=== PATIENT | male | born 1960 | race American Indian/Alaskan Native ===

== ENCOUNTER 2016-09-11 21:17 | Emergency (ER) | payer OTHER, MEDICAID ==
--- NOTE | 2016-09-12 02:14 | Emergency Department Report ---
Upper Extremity - HPI Chief Complaint: Fall Stated Complaint: R HAND SWELLING/BACK PAIN Time Seen by Provider: 09/12/16 02:05 Upper Extremity: Right Wrist, Right Hand Occurred When: 2 Days Mechanism: Fall Symptoms: Yes Pain with Movement, Yes Limited Range of Movement, Yes Weakness, Yes Swelling, No Deformity, No Numbness, No Bruising/Ecchymosis, No Laceration or Abrasion Other History: Patient comes into the ER today with complaints of right hand and wrist pain for the past 2 days. Patient states that his knee gave out on him a couple days ago causing him to fall and injure his right hand. Patient has been trying to move his hand and work out the swelling but came in tonight because the swelling seems to be getting worse and the pain is not improving. Patient denies any loss of consciousness, neck pain, chest pain, shortness of breath, leg edema. Patient notes he does have a history of back pain but that they is chronic. She denies any numbness, tingling, loss of sensation. ED Review of Systems ROS: Stated complaint: R HAND SWELLING/BACK PAIN Other details as noted in HPI Constitutional: denies: chills, fever Eyes: denies: eye pain, eye discharge, vision change ENT: denies: ear pain, throat pain Respiratory: denies: cough, shortness of breath, wheezing Cardiovascular: denies: chest pain, palpitations Endocrine: no symptoms reported Gastrointestinal: denies: abdominal pain, nausea, diarrhea Genitourinary: denies: urgency, dysuria Musculoskeletal: back pain, joint swelling, arthralgia Skin: denies: rash, lesions Neurological: denies: headache, weakness, numbness, paresthesias Psychiatric: denies: anxiety, depression Hematological/Lymphatic: denies: easy bleeding, easy bruising ED Past Medical Hx - Past Medical History Previous Medical History?: Yes Hx Hypertension: Yes Hx CVA: Yes (3 in 2008) Hx Psychiatric Treatment: Yes Additional medical history: high cholesterol, - Surgical History Past Surgical History?: No - Social History Smoking Status: Never Smoker Substance Use Type: None - Medications Home Medications: Home Medications Medication Instructions Recorded Confirmed Last Taken Type Alprostadil [[place] SUPPOS] 1,000 mcg UR PRN 11/27/14 11/27/14 Unknown History Aspirin [Aspirin BABY CHEW TAB] 81 mg PO QDAY 11/27/14 11/27/14 Unknown History AtorvaSTATin [Lipitor] 80 mg PO DAILY 11/27/14 11/27/14 Unknown History Buspirone HCl [busPIRone] 5 mg PO BID 11/27/14 11/27/14 Unknown History Cholecalciferol (Vitamin D3) 1,000 unit PO QDAY 11/27/14 11/27/14 Unknown History [Vitamin D3] Clopidogrel [Plavix] 75 mg PO QDAY 11/27/14 11/27/14 Unknown History Lisinopril/Hydrochlorothiazide 2 tab PO QDAY 11/27/14 11/27/14 Unknown History [Zestoretic 20-12.5 mg] Potassium Chloride [K-Dur] 20 meq PO QDAY 11/27/14 11/27/14 Unknown History QUEtiapine [SEROquel] 100 mg PO QHS 11/27/14 11/27/14 Unknown History Sertraline [Zoloft] 200 mg PO QDAY 11/27/14 11/27/14 Unknown History Tadalafil [Cialis] 20 mg PO QDAY PRN 11/27/14 11/27/14 Unknown History amLODIPine [Norvasc] 10 mg PO DAILY 11/27/14 11/27/14 Unknown History traZODone [Desyrel] 100 mg PO QHS 11/27/14 11/27/14 Unknown History Ibuprofen [Motrin 800 MG tab] 800 mg PO Q8HR PRN #40 tablet 07/09/15 Unknown Rx traMADol [Ultram] 50 mg PO Q6HR PRN #20 tablet 07/09/15 Unknown Rx Naproxen [Naprosyn TAB] 500 mg PO BID #14 tablet 09/12/16 Unknown Rx traMADol [Ultram 50 MG tab] 50 mg PO Q4HR PRN #20 tablet 09/12/16 Unknown Rx Upper Extremity Exam - Exam General: Vital signs noted. No distress. Alert and acting appropriately. Head and Torso: No HEENT Abnormality, No Neck Tenderness, No Chest/Lungs Abnormality, No Abdominal Tenderness, No Back Tenderness Shoulder Exam: Yes Normal Range of Motion in Shoulder, No Shoulder Tenderness, No Clavicle Tenderness, No Shoulder Deformity, No AC Joint Tenderness Arm Exam: No Arm/Humerus Tenderness, No Arm Deformity Elbow: No Elbow Tenderness, No Normal Range of Motion in Elbow, No Elbow Deformity Forearm: No Forearm Tenderness, No Forearm Deformity, No Pain with Pronation, No Pain with Supination Wrist: Yes Wrist Tenderness (right distal radius tenderness), Yes Snuffbox Tenderness (right), No Normal ROM in Wrist (right), No Wrist Deformity, No Pain with Axial Thumb Compression Hand: Yes Hand Tenderness (greatest tenderness noted over the third metacarpal bone), Yes Normal ROM in Digit(s), No Hand Deformity, No Digit Tenderness, No Digit(s) Deformity, No Tendon Dysfunction CMS Exam: Yes Normal Distal Pulses, Yes Normal Capillary Refill, Yes Normal Distal Sensation, No Broken Skin ED Course Vital Signs 09/11/16 21:30 Temperature 98.1 F Pulse Rate 73 Respiratory 20 Rate Blood Pressure 126/93 O2 Sat by Pulse 100 Oximetry ED Medical Decision Making - Radiology Data Radiology results: image reviewed interpreted by me: X-ray right hand, x-ray right wrist: Nondisplaced mid shaft fracture to right third metacarpal bone. Possible distal radius nondisplaced fracture of right wrist. - Medical Decision Making Patient is nontoxic and hemodynamically stable. Patient placed in a volar thumb spica splint here in the ER. Patient is neurovascularly intact after splint placement. Have instructed patient to leave splint on until seen by orthopedic next week. I will start patient on some medication for symptomatic relief. Patient is in agreement with treatment plan and patient is stable for discharge. Critical care attestation.: If time is entered above; I have spent that time in minutes in the direct care of this critically ill patient, excluding procedure time. ED Disposition Clinical Impression: Closed right hand fracture, Closed fracture of right distal radius Disposition: TO HOME OR SELFCARE Is pt being admited?: No Does the pt Need Aspirin: No Condition: Good Instructions: Hand Fracture (ED), Wrist Fracture in Adults (ED) Prescriptions: Naproxen [Naprosyn TAB] 500 mg PO BID #14 tablet traMADol [Ultram 50 MG tab] 50 mg PO Q4HR PRN #20 tablet PRN Reason: Pain Referrals: PRIMARY CARE, [Primary Care Provider] - 3-5 Days YIFAN NIÑO MD [Staff Physician] - 3-5 Days Time of Disposition: 02:23
[2016-09-12 03:30] VITALS: BP 159/96
--- NOTE | 2016-09-12 11:03 | XRay Report ---
X-RAY RIGHT HAND THREE VIEWS: 09/11/16 21:34:00 CLINICAL: Right pain. 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 No acute fracture or dislocation. There is radiocarpal joint space narrowing and an abnormally small scaphoid. The position of the lunate is also abnormal. An avulsed bone fragment is identified at the lateral aspect of the distal radius but this is not appear to be an acute avulsion. IMPRESSION: Suspect a remote scaphoid fracture with resultant osteoarthritis of the radiocarpal joint and dislocation of the lunate. Further imaging with CT or MRI would be more definitive. Arthritis of the thumb.
--- NOTE | 2016-09-12 11:05 | XRay Report ---
RIGHT WRIST FOUR VIEWS: 09/11/16 21:34:00 CLINICAL: Pain. FINDINGS: There is radiocarpal joint space narrowing and an abnormally small scaphoid. The lunate appears rotated. An avulsed bone fragment is identified at the lateral aspect of the distal radius. This appears to be an old avulsion fracture possibly of the radial styloid. The articular surface of the distal radius is irregular this probably an old injury. No acute fracture or dislocation. IMPRESSION: Suspect remote trauma with a remote scaphoid fracture with resultant osteoarthritis of the radiocarpal joint and dislocation of the lunate. Remote fracture of the distal radius is also possible. Further imaging with CT or MRI would be more definitive.
== END 2016-09-12 03:30 | disposition home or self-care (01) ==
LOC: ED 21:17
DX: S52.501A Unspecified fracture of the lower end of right radius, initial encounter for closed fracture (principal); X58.XXXA Exposure to other specified factors, initial encounter; Y93.9 Activity, unspecified; Y92.9 Unspecified place or not applicable; Y99.9 Unspecified external cause status; I10 Essential (primary) hypertension; E78.00 Pure hypercholesterolemia, unspecified
CPT/HCPCS: 99283

== ENCOUNTER 2016-11-15 23:12 | Emergency (ER) | payer MEDICAID, OTHER ==
--- NOTE | 2016-11-16 00:42 | Emergency Department Report ---
ED Back Pain/Injury HPI - General Chief Complaint: Back Pain/Injury Stated Complaint: HICCUPS,BACK,KNEE PAIN Time Seen by Provider: 11/16/16 00:34 Source: patient Limitations: No Limitations - History of Present Illness Initial Comments: This 56-year-old male nontoxic, well nourished in appearance, no acute signs of distress presents to the ED complaining of chronic back pain and bilateral shoulder pain 3 years. Patient also is complaining of hiccups intermittently 6 days. Patient that he has a pain management for his back and shoulder pain and gets prescriptions for Percocets which patient that he ran out and wanted to get a refill. Patient did state he has a pain management doctor follow-up in 2 days. Patient denies any trauma to the back or shoulders. Patient denies any dysuria or polyuria or hematuria. They stated this is a chronic issue that is resolved by taking Percocet. Patient did state that his hiccups do occur after the patient eats a heavy meal and worse during laying down. Patient denies being diagnosed with GERD. Patient also stated that her headache of episodes he has a burning sensation in the midsternal region that goes to his neck and feels like he has to vomit. Patient states all the symptoms occur at the heavy meal and when going to sleep. Patient denies any chest pain, shortness of breath, numbness, tingling, fever, chills, headache, stiff neck, bowel pain, nausea or vomiting. Patient denies any allergies. Past medical history includes CVA, hypertension. Patient did state he does have a primary care doctor that he sees for his hypertension and does take medication for his blood pressure. MD Complaint: back pain -: Gradual, year(s) Similar Symptoms Previously: Yes Radiation: none Severity: mild Severity scale (0 -10): 5 Quality: aching Consistency: intermittent Improves With: medication (Perococet) Worsens With: none Associated Symptoms: denies other symptoms. denies: confusion, weakness, chest pain, numbness, difficulty walking, cough, difficulty urinating, diaphoresis, incontinence, fever/chills, constipation, headaches, abdominal pain, loss of appetite, malaise, nausea/vomiting, rash, seizure, shortness of breath, syncope - Related Data Home Medications Medication Instructions Recorded Confirmed Last Taken Alprostadil [[place] SUPPOS] 1,000 mcg UR PRN 11/27/14 11/27/14 Unknown Aspirin [Aspirin BABY CHEW TAB] 81 mg PO QDAY 11/27/14 11/27/14 Unknown AtorvaSTATin [Lipitor] 80 mg PO DAILY 11/27/14 11/27/14 Unknown Buspirone HCl [busPIRone] 5 mg PO BID 11/27/14 11/27/14 Unknown Cholecalciferol (Vitamin D3) 1,000 unit PO QDAY 11/27/14 11/27/14 Unknown [Vitamin D3] Clopidogrel [Plavix] 75 mg PO QDAY 11/27/14 11/27/14 Unknown Lisinopril/Hydrochlorothiazide 2 tab PO QDAY 11/27/14 11/27/14 Unknown [Zestoretic 20-12.5 mg] Potassium Chloride [K-Dur] 20 meq PO QDAY 11/27/14 11/27/14 Unknown QUEtiapine [SEROquel] 100 mg PO QHS 11/27/14 11/27/14 Unknown Sertraline [Zoloft] 200 mg PO QDAY 11/27/14 11/27/14 Unknown Tadalafil [Cialis] 20 mg PO QDAY PRN 11/27/14 11/27/14 Unknown amLODIPine [Norvasc] 10 mg PO DAILY 11/27/14 11/27/14 Unknown traZODone [Desyrel] 100 mg PO QHS 11/27/14 11/27/14 Unknown Previous Rx's Medication Instructions Recorded Last Taken Type Ibuprofen [Motrin 800 MG tab] 800 mg PO Q8HR PRN #40 tablet 07/09/15 Unknown Rx traMADol [Ultram] 50 mg PO Q6HR PRN #20 tablet 07/09/15 Unknown Rx Naproxen [Naprosyn TAB] 500 mg PO BID #14 tablet 09/12/16 Unknown Rx traMADol [Ultram 50 MG tab] 50 mg PO Q4HR PRN #20 tablet 09/12/16 Unknown Rx Ibuprofen [Motrin 600 MG tab] 600 mg PO Q8H PRN #30 tablet 11/16/16 Unknown Rx Ranitidine HCl [Zantac 150 MG TAB] 150 mg PO BID #30 tablet 11/16/16 Unknown Rx Allergies Allergy/AdvReac Type Severity Reaction Status Date / Time No Known Allergies Allergy Unverified 07/09/15 17:47 ED Review of Systems ROS: Stated complaint: HICCUPS,BACK,KNEE PAIN Other details as noted in HPI Constitutional: denies: chills, fever Eyes: denies: eye pain, eye discharge, vision change ENT: denies: ear pain, throat pain Respiratory: denies: cough, shortness of breath, wheezing Cardiovascular: denies: chest pain, palpitations Endocrine: no symptoms reported Gastrointestinal: denies: abdominal pain, nausea, diarrhea Genitourinary: denies: urgency, dysuria Musculoskeletal: denies: back pain, joint swelling, arthralgia Skin: denies: rash, lesions Neurological: denies: headache, weakness, paresthesias Psychiatric: denies: anxiety, depression Hematological/Lymphatic: denies: easy bleeding, easy bruising ED Past Medical Hx - Past Medical History Previous Medical History?: Yes Hx Hypertension: Yes Hx CVA: Yes (3 in 2008) Hx Psychiatric Treatment: Yes Additional medical history: high cholesterol, - Surgical History Past Surgical History?: No - Social History Smoking Status: Never Smoker Substance Use Type: None - Medications Home Medications: Home Medications Medication Instructions Recorded Confirmed Last Taken Type Alprostadil [[place] SUPPOS] 1,000 mcg UR PRN 11/27/14 11/27/14 Unknown History Aspirin [Aspirin BABY CHEW TAB] 81 mg PO QDAY 11/27/14 11/27/14 Unknown History AtorvaSTATin [Lipitor] 80 mg PO DAILY 11/27/14 11/27/14 Unknown History Buspirone HCl [busPIRone] 5 mg PO BID 11/27/14 11/27/14 Unknown History Cholecalciferol (Vitamin D3) 1,000 unit PO QDAY 11/27/14 11/27/14 Unknown History [Vitamin D3] Clopidogrel [Plavix] 75 mg PO QDAY 11/27/14 11/27/14 Unknown History Lisinopril/Hydrochlorothiazide 2 tab PO QDAY 11/27/14 11/27/14 Unknown History [Zestoretic 20-12.5 mg] Potassium Chloride [K-Dur] 20 meq PO QDAY 11/27/14 11/27/14 Unknown History QUEtiapine [SEROquel] 100 mg PO QHS 11/27/14 11/27/14 Unknown History Sertraline [Zoloft] 200 mg PO QDAY 11/27/14 11/27/14 Unknown History Tadalafil [Cialis] 20 mg PO QDAY PRN 11/27/14 11/27/14 Unknown History amLODIPine [Norvasc] 10 mg PO DAILY 11/27/14 11/27/14 Unknown History traZODone [Desyrel] 100 mg PO QHS 11/27/14 11/27/14 Unknown History Ibuprofen [Motrin 800 MG tab] 800 mg PO Q8HR PRN #40 tablet 07/09/15 Unknown Rx traMADol [Ultram] 50 mg PO Q6HR PRN #20 tablet 07/09/15 Unknown Rx Naproxen [Naprosyn TAB] 500 mg PO BID #14 tablet 09/12/16 Unknown Rx traMADol [Ultram 50 MG tab] 50 mg PO Q4HR PRN #20 tablet 09/12/16 Unknown Rx Ibuprofen [Motrin 600 MG tab] 600 mg PO Q8H PRN #30 tablet 11/16/16 Unknown Rx Ranitidine HCl [Zantac 150 MG TAB] 150 mg PO BID #30 tablet 11/16/16 Unknown Rx ED Physical Exam - General Limitations: No Limitations General appearance: alert, in no apparent distress - Head Head exam: Present: atraumatic, normocephalic, normal inspection - Eye Eye exam: Present: normal appearance, PERRL, EOMI. Absent: scleral icterus, conjunctival injection, nystagmus, periorbital swelling, periorbital tenderness Pupils: Present: normal accommodation - ENT ENT exam: Present: normal exam, normal orophraynx, mucous membranes moist, TM's normal bilaterally, normal external ear exam - Neck Neck exam: Present: normal inspection, full ROM. Absent: tenderness, meningismus, lymphadenopathy, thyromegaly - Respiratory Respiratory exam: Present: normal lung sounds bilaterally. Absent: respiratory distress, wheezes, rales, rhonchi, stridor, chest wall tenderness, accessory muscle use, decreased breath sounds, prolonged expiratory - Cardiovascular Cardiovascular Exam: Present: regular rate, normal rhythm, normal heart sounds. Absent: bradycardia, tachycardia, irregular rhythm, systolic murmur, diastolic murmur, rubs, gallop - GI/Abdominal GI/Abdominal exam: Present: soft, normal bowel sounds. Absent: distended, tenderness, guarding, rebound, rigid, diminished bowel sounds - Rectal Rectal exam: Present: deferred - Extremities Exam Extremities exam: Present: normal inspection, full ROM, normal capillary refill. Absent: tenderness, pedal edema, joint swelling, calf tenderness - Back Exam Back exam: Present: normal inspection, full ROM. Absent: tenderness, CVA tenderness (R), CVA tenderness (L), muscle spasm, paraspinal tenderness, vertebral tenderness, rash noted - Expanded Back Exam Expanded Back exam: Present: normal rectal tone. Absent: saddle anesthesia Back exam: Negative Straight Leg Raising: Left, Right - Neurological Exam Neurological exam: Present: alert, oriented X3, CN II-XII intact, normal gait, reflexes normal - Expanded Neurological Exam Expanded Patient oriented to: Present: person, place, time Speech: Present: fluid speech Cranial nerves: EOM's Intact: Normal, Gag Reflex: Normal, Tongue Deviation: Normal, Nystagmus: Normal, Facial Sensation: Normal, Facial Palsy with Forehead Movement: Normal, Facial Palsy without Forehead Movement: Normal Cerebellar function: Finger to Nose: Normal, Heel to Craft: Normal, Romberg: Normal Upper motor neuron: Pierce Neglect: Normal, Pronator Drift: Normal, Babinski Sign : Normal, Sensory Extinction: Normal Sensory exam: Upper Extremity Light Touch: Normal, Upper Extremity Pin Prick: Normal, Upper Extremity Temperature: Normal, UE 2 Point Discrimination: Normal, Lower Extremity Light Touch: Normal, Lower Extremity Pin Prick: Normal, Lower Extremity Temperature: Normal, LE 2 Point Discrimination: Normal Motor strength exam: RUE: 5, LUE: 5, RLE: 5, LLE: 5 DTR: bicep (R): 2+, bicep (L): 2+, tricep (R): 2+, tricep (L): 2+, knee (R): 2+ , knee (L): 2+, ankle (R): 2+, ankle (L): 2+ Best Eye Response (Radha): (4) open spontaneously Best Motor Response (Radha): (6) obeys commands Best Verbal Response (Acosta): (5) oriented Radha Total: 15 - Psychiatric Psychiatric exam: Present: normal affect, normal mood - Skin Skin exam: Present: warm, dry, intact, normal color. Absent: rash ED Course Vital Signs 11/16/16 00:03 Temperature 98.1 F Pulse Rate 69 Respiratory 18 Rate Blood Pressure 161/109 O2 Sat by Pulse 99 Oximetry - Reevaluation(s) Reevaluation #1: 11/16/16 00:48 Patient is speaking in full sentences with no signs of distress noted. ED Medical Decision Making - Medical Decision Making This is a 56-year-old male that is requesting for Percocet refill. [facility] has been ran and indicates patient filled under 80 pills of 10 mg Percocet on . Notify the patient about this and my concerns of patient receiving more narcotics and side effects. Patient agrees to receiving ibuprofen with follow-up with pain management. Patient also received Zantac 150 mg twice a day. At time time of discharge, the patient does not seem toxic or ill in appearance. No acute signs of distress noted. Patient agrees to discharge treatment plan of care. No further questions noted by the patient. Critical care attestation.: If time is entered above; I have spent that time in minutes in the direct care of this critically ill patient, excluding procedure time. ED Disposition Clinical Impression: GERD (gastroesophageal reflux disease) Qualifiers: Esophagitis presence: esophagitis presence not specified Qualified Code(s): K21.9 - Gastro-esophageal reflux disease without esophagitis Back pain, chronic Qualifiers: Back pain location: low back pain Back pain laterality: unspecified Sciatica presence: unspecified whether sciatica present Qualified Code(s): M54.5 - Low back pain; G89.29 - Other chronic pain Disposition: DC-01 TO HOME OR SELFCARE Is pt being admited?: No Does the pt Need Aspirin: No Condition: Stable Instructions: Gastroesophageal Reflux in Children (ED), Ranitidine (By mouth), Ibuprofen (By mouth) Additional Instructions: Follow-up with a primary care doctor in 3-5 days or if symptoms worsen and continue return to emergency room as soon as possible possible. Prescriptions: Ibuprofen [Motrin 600 MG tab] 600 mg PO Q8H PRN #30 tablet PRN Reason: Pain Ranitidine HCl [Zantac 150 MG TAB] 150 mg PO BID #30 tablet Referrals: PRIMARY MD CINDY [Primary Care Provider] - 3-5 Days FANNIE SEGURA MD [Staff Physician] - 3-5 Days [facility] [Outside] - 3-5 Days [facility] [Outside] - 3-5 Days
[2016-11-16] MEDS ORDERED: MOTRIN PO ONE (00:47)
[2016-11-16 01:11] VITALS: BP 130/83
== END 2016-11-16 02:50 | disposition home or self-care (01) ==
LOC: ED 23:12
DX: K21.9 Gastro-esophageal reflux disease without esophagitis (principal); M54.5 Low back pain; M25.511 Pain in right shoulder; M25.512 Pain in left shoulder; I10 Essential (primary) hypertension; E78.00 Pure hypercholesterolemia, unspecified; Z86.73 Personal history of transient ischemic attack (TIA), and cerebral infarction without residual deficits; Z79.82 Long term (current) use of aspirin
CPT/HCPCS: 99282

== ENCOUNTER 2017-01-17 22:15 | Emergency (ER) | payer MEDICAID ==
--- NOTE | 2017-01-18 03:35 | Emergency Department Report ---
ED General Adult HPI - General Chief complaint: Pain General Stated complaint: THROAT SPASMS Time Seen by Provider: 01/18/17 03:28 Source: patient Mode of arrival: Ambulatory Limitations: No Limitations - History of Present Illness Initial comments: 56 YO MALE WITH H/O HICCUPS MOST OF HIS LIFE . THESE ARE INTERMITTENT TYPICALLY LASTING FOR 4 DAYS AND THEN GO AWAY ON IT OWN. HE HAD AN RECENT EPISODE BEGINNING ON 01/07/2017 AND WAS STILL LASTING UNTIL TODAY. 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 NO DISTRESS. PT'S HICCUPS WERE GONE WHEN I INTERVIEWED HIM. MD Complaint: HICCUPS -: days(s) (11) Severity scale (0 -10): 0 Improves with: none Worsens with: none Treatments Prior to Arrival: none - Related Data Home Medications Medication Instructions Recorded Confirmed Last Taken Alprostadil [[place] SUPPOS] 1,000 mcg UR PRN 11/27/14 11/27/14 Unknown Aspirin [Aspirin BABY CHEW TAB] 81 mg PO QDAY 11/27/14 11/27/14 Unknown AtorvaSTATin [Lipitor] 80 mg PO DAILY 11/27/14 11/27/14 Unknown Buspirone HCl [busPIRone] 5 mg PO BID 11/27/14 11/27/14 Unknown Cholecalciferol (Vitamin D3) 1,000 unit PO QDAY 11/27/14 11/27/14 Unknown [Vitamin D3] Clopidogrel [Plavix] 75 mg PO QDAY 11/27/14 11/27/14 Unknown Lisinopril/Hydrochlorothiazide 2 tab PO QDAY 11/27/14 11/27/14 Unknown [Zestoretic 20-12.5 mg] Potassium Chloride [K-Dur] 20 meq PO QDAY 11/27/14 11/27/14 Unknown QUEtiapine [SEROquel] 100 mg PO QHS 11/27/14 11/27/14 Unknown Sertraline [Zoloft] 200 mg PO QDAY 11/27/14 11/27/14 Unknown Tadalafil [Cialis] 20 mg PO QDAY PRN 11/27/14 11/27/14 Unknown amLODIPine [Norvasc] 10 mg PO DAILY 11/27/14 11/27/14 Unknown traZODone [Desyrel] 100 mg PO QHS 11/27/14 11/27/14 Unknown Previous Rx's Medication Instructions Recorded Last Taken Type Ibuprofen [Motrin 800 MG tab] 800 mg PO Q8HR PRN #40 tablet 07/09/15 Unknown Rx traMADol [Ultram] 50 mg PO Q6HR PRN #20 tablet 07/09/15 Unknown Rx Naproxen [Naprosyn TAB] 500 mg PO BID #14 tablet 09/12/16 Unknown Rx traMADol [Ultram 50 MG tab] 50 mg PO Q4HR PRN #20 tablet 09/12/16 Unknown Rx Ibuprofen [Motrin 600 MG tab] 600 mg PO Q8H PRN #30 tablet 11/16/16 Unknown Rx Ranitidine HCl [Zantac 150 MG TAB] 150 mg PO BID #30 tablet 01/18/17 Unknown Rx Allergies Allergy/AdvReac Type Severity Reaction Status Date / Time No Known Allergies Allergy Unverified 07/09/15 17:47 ED Review of Systems ROS: Stated complaint: THROAT SPASMS Other details as noted in HPI Constitutional: denies: chills, fever Eyes: denies: eye pain, eye discharge, vision change ENT: denies: ear pain, throat pain Respiratory: denies: cough, shortness of breath, wheezing Cardiovascular: denies: chest pain, palpitations Endocrine: no symptoms reported Gastrointestinal: other (ABDOMINAL SURGERY). denies: nausea, diarrhea Genitourinary: denies: urgency, dysuria Musculoskeletal: denies: back pain, joint swelling, arthralgia Skin: denies: rash, lesions Neurological: denies: headache, weakness, paresthesias Psychiatric: denies: anxiety, depression Hematological/Lymphatic: denies: easy bleeding, easy bruising ED Past Medical Hx - Past Medical History Previous Medical History?: Yes Hx Hypertension: Yes Hx CVA: Yes (3 in 2008) Hx Psychiatric Treatment: Yes Additional medical history: high cholesterol, - Surgical History Past Surgical History?: Yes Additional Surgical History: REGI surgery last - Social History Smoking Status: Never Smoker - Medications Home Medications: Home Medications Medication Instructions Recorded Confirmed Last Taken Type Alprostadil [[place] SUPPOS] 1,000 mcg UR PRN 11/27/14 11/27/14 Unknown History Aspirin [Aspirin BABY CHEW TAB] 81 mg PO QDAY 11/27/14 11/27/14 Unknown History AtorvaSTATin [Lipitor] 80 mg PO DAILY 11/27/14 11/27/14 Unknown History Buspirone HCl [busPIRone] 5 mg PO BID 11/27/14 11/27/14 Unknown History Cholecalciferol (Vitamin D3) 1,000 unit PO QDAY 11/27/14 11/27/14 Unknown History [Vitamin D3] Clopidogrel [Plavix] 75 mg PO QDAY 11/27/14 11/27/14 Unknown History Lisinopril/Hydrochlorothiazide 2 tab PO QDAY 11/27/14 11/27/14 Unknown History [Zestoretic 20-12.5 mg] Potassium Chloride [K-Dur] 20 meq PO QDAY 11/27/14 11/27/14 Unknown History QUEtiapine [SEROquel] 100 mg PO QHS 11/27/14 11/27/14 Unknown History Sertraline [Zoloft] 200 mg PO QDAY 11/27/14 11/27/14 Unknown History Tadalafil [Cialis] 20 mg PO QDAY PRN 11/27/14 11/27/14 Unknown History amLODIPine [Norvasc] 10 mg PO DAILY 11/27/14 11/27/14 Unknown History traZODone [Desyrel] 100 mg PO QHS 11/27/14 11/27/14 Unknown History Ibuprofen [Motrin 800 MG tab] 800 mg PO Q8HR PRN #40 tablet 07/09/15 Unknown Rx traMADol [Ultram] 50 mg PO Q6HR PRN #20 tablet 07/09/15 Unknown Rx Naproxen [Naprosyn TAB] 500 mg PO BID #14 tablet 09/12/16 Unknown Rx traMADol [Ultram 50 MG tab] 50 mg PO Q4HR PRN #20 tablet 09/12/16 Unknown Rx Ibuprofen [Motrin 600 MG tab] 600 mg PO Q8H PRN #30 tablet 11/16/16 Unknown Rx Ranitidine HCl [Zantac 150 MG TAB] 150 mg PO BID #30 tablet 01/18/17 Unknown Rx ED Physical Exam - General Limitations: No Limitations General appearance: alert, in no apparent distress - Head Head exam: Present: atraumatic, normocephalic - Eye Eye exam: Present: normal appearance, EOMI - ENT ENT exam: Present: mucous membranes moist - Neck Neck exam: Present: normal inspection, full ROM - Respiratory Respiratory exam: Present: normal lung sounds bilaterally. Absent: respiratory distress, wheezes, rales, rhonchi - Cardiovascular Cardiovascular Exam: Present: regular rate, normal rhythm. Absent: systolic murmur, diastolic murmur, rubs, gallop - GI/Abdominal GI/Abdominal exam: Present: soft, tenderness (SMALL SCAR AROUND THE UMBILICUS), normal bowel sounds - Rectal Rectal exam: Present: deferred - Extremities Exam Extremities exam: Present: normal inspection - Back Exam Back exam: Present: normal inspection - Neurological Exam Neurological exam: Present: alert, oriented X3 - Psychiatric Psychiatric exam: Present: normal affect, normal mood - Skin Skin exam: Present: warm, dry, intact, normal color. Absent: rash ED Course Vital Signs 01/17/17 01/17/17 01/18/17 22:21 22:31 02:40 Temperature 98.1 F 98.1 F Pulse Rate 72 79 Respiratory 18 18 Rate Blood Pressure 176/109 176/106 Blood Pressure [Right] O2 Sat by Pulse 98 98 95 Oximetry 01/18/17 01/18/17 02:45 02:49 Temperature 98.4 F Pulse Rate 72 79 Respiratory 14 13 Rate Blood Pressure 167/104 Blood Pressure 177/100 [Right] O2 Sat by Pulse 93 99 Oximetry ED Medical Decision Making - Medical Decision Making PT HAD NO HICCUPS THUS NOTHING TO TREAT. HE USUALLY GET RANATIDINE FOR HIS HICCUPS THUS I HAVE SENT HIM OUT WITH THIS. Critical care attestation.: If time is entered above; I have spent that time in minutes in the direct care of this critically ill patient, excluding procedure time. ED Disposition Clinical Impression: Hiccups Disposition: DC-01 TO HOME OR SELFCARE Is pt being admited?: No Does the pt Need Aspirin: No Condition: Stable Instructions: Hiccups (ED) Prescriptions: Ranitidine HCl [Zantac 150 MG TAB] 150 mg PO BID #30 tablet Referrals: PRIMARY CARE, [Primary Care Provider] - 3-5 Days
[2017-01-18 04:04] VITALS: BP 170/104
== END 2017-01-18 04:27 | disposition home or self-care (01) ==
LOC: ED 22:15
DX: R06.6 Hiccough (principal); I10 Essential (primary) hypertension; I63.9 Cerebral infarction, unspecified; E78.5 Hyperlipidemia, unspecified; Z79.82 Long term (current) use of aspirin
CPT/HCPCS: 99282

== ENCOUNTER 2017-08-16 05:08 | Emergency (ER) | payer OTHER, MEDICAID ==
[2017-08-16 05:16] VITALS: BP 126/82
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
== END 2017-08-16 09:58 | disposition home or self-care (01) ==
LOC: ED 05:08
DX: S46.911A Strain of unspecified muscle, fascia and tendon at shoulder and upper arm level, right arm, initial encounter (principal); I10 Essential (primary) hypertension; E78.00 Pure hypercholesterolemia, unspecified; Z90.49 Acquired absence of other specified parts of digestive tract; Z79.82 Long term (current) use of aspirin; V89.2XXA Person injured in unspecified motor-vehicle accident, traffic, initial encounter; Y93.89 Activity, other specified; Y92.89 Other specified places as the place of occurrence of the external cause; Y99.8 Other external cause status
CPT/HCPCS: 99283

== ENCOUNTER 2018-10-05 10:13 | Observation (INO) | payer MEDICAID ==
[2018-10-05] MEDS ORDERED: KEPPRA 1,000 MG/NS 0.75% 100ML 1,000 MG/100 ML BAG IV ONE (10:25)
[2018-10-05 10:40] LABS: Basophils % (Auto) 0.8 % (0.0-1.8); Eosinophils # (Auto) 0.1 K/mm3 (0.0-0.4); Eosinophils % (Auto) 1.7 % (0.0-4.3); Hematocrit 34.5 % (35.5-45.6); Hemoglobin 11.3 gm/dl (11.8-15.2); Lymphocytes # (Auto) 1.3 K/mm3 (1.2-5.4); Lymphocytes % (Auto) 29.5 % (13.4-35.0); Mean Corpuscular HGB Conc 33 % (32-34); Mean Corpuscular Volume 81 fl (84-94); Monocytes # (Auto) 0.5 K/mm3 (0.0-0.8); Monocytes % (Auto) 10.4 % (0.0-7.3); Platelet Count 183 K/mm3 (140-440); Red Blood Count 4.24 M/mm3 (3.65-5.03); Red Cell Distribution Width 14.1 % (13.2-15.2)
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
--- NOTE | 2018-10-05 10:56 | Cat Scan Report ---
CT HEAD WITHOUT CONTRAST INDICATION / CLINICAL INFORMATION: Stroke, code stroke.. Seizure TECHNIQUE: Axial imaging performed from the skull apex through the skull base without the use of cont rast. Sagittal and coronal reformatted images. All CT scans at this location are performed using CT dose reduction for ALARA by means of automated exposure control. COMPARISON: CT head report dated 05/03/2017 FINDINGS: CEREBRAL PARENCHYMA: Mild cortical volume loss and moderate chronic ischemic changes in the white mat ter are identified. Multiple chronic infarcts are identified. A cortical infarct in the left frontal lobe measures up to 5.8 x 3.5 cm. Focal infarct in the right anterior basal ganglia measures 2.7 x 1 .4 cm. 1 cm chronic lacunar infarct is noted in the anterior left thalamus. Chronic 1 cm focal infarc ts in the posterior cerebellar hemispheres bilaterally is also noted. No evidence for mass or large a danielle of acute ischemia on noncontrast CT. HEMORRHAGE: None. EXTRA-AXIAL SPACES: Normal in size and morphology for the patient's age. VENTRICULAR SYSTEM: Normal in size and morphology for the patient's age. MIDLINE SHIFT OR HERNIATION: None. CEREBELLUM / BRAINSTEM: Focal chronic infarcts as noted above. CALVARIUM: No significant abnormality. ORBITS: Normal as visualized. PARANASAL SINUSES / MASTOID AIR CELLS: Normal as visualized. SOFT TISSUES of HEAD: No significant abnormality. ADDITIONAL FINDINGS: None. IMPRESSION: Volume loss and chronic white matter changes. Multiple chronic infarcts as outlined above. No evidenc e for acute ischemia, mass or hemorrhage. These findings were discussed with Dr. Moctezuma in [facility] Signer Name: Ronal Olivarez Jr, MD Signed: 10/05/2018 10:52 AM Workstation Name: [id number]
[2018-10-05 11:01] LABS: Creatine Kinase MB 1.3 ng/mL (0.0-4.0)
[2018-10-05 11:02] LABS: Alanine Aminotransferase 10 units/L (7-56)
[2018-10-05 11:03] LABS: BUN/Creatinine Ratio 11; Bilirubin,Direct < 0.2 mg/dL (0-0.2); Blood Urea Nitrogen 12 mg/dL (9-20); Hemolysis Index 9
[2018-10-05] MEDS ORDERED: K-DUR PO ONE (11:12)
--- NOTE | 2018-10-05 11:12 | Emergency Department Report ---
ED Neuro Deficit HPI - General Chief Complaint: Altered Mental Status Stated Complaint: POSS STROKE Time Seen by Provider: 10/05/18 10:17 Source: patient, EMS Mode of arrival: Stretcher Limitations: No Limitations - History of Present Illness Initial Comments: This is a 58-year-old man that arrives as a "code stroke". Medics tell me that he was found lethargic with froth at the side of his mouth. They checked his sugar and vital signs which were within reasonable limits. While being transported to the hospital the patient essentially awoke. At the time of his arrival he was able to tell me his age and the month. He also told me that he felt like he was back to normal. He stated that he had 3 or 4 prior strokes which left him with left-sided weakness and facial paresis. This was apparent on initial exam. Code stroke continued. I reported the history to tell her neurologist who concurred that a postictal state was probably what occurred. Therefore and being that the patient had no acute neurological deficits he was ineligible for treatment with TPA and it was deemed not to be appropriate. Patient stated that he had no history of seizures in the past. Obviously he was substantial risk with multiple prior strokes. He was treated empirically with Keppra. -: unknown History of same: No Place: home Severity: moderate Quality: other (altered mental status) On Anticoagulants: No Context: other (unknown yet) Associated Symptoms: denies other symptoms - Related Data Home Medications: Home Medications Medication Instructions Recorded Confirmed Last Taken Alprostadil [[place] SUPPOS] 1,000 mcg UR PRN 11/27/14 05/05/17 Unknown AtorvaSTATin [Lipitor] 80 mg PO DAILY 11/27/14 05/05/17 Unknown Buspirone HCl [busPIRone] 5 mg PO BID 11/27/14 05/05/17 Unknown Cholecalciferol (Vitamin D3) 1,000 unit PO QDAY 11/27/14 05/05/17 Unknown [Vitamin D3 2,000 UNIT CAP] Potassium Chloride [K-Dur] 20 meq PO QDAY 11/27/14 05/05/17 Unknown QUEtiapine [SEROquel] 100 mg PO QHS 11/27/14 05/05/17 Unknown Sertraline [Zoloft] 200 mg PO QDAY 11/27/14 05/05/17 Unknown Tadalafil [Cialis] 20 mg PO QDAY PRN 11/27/14 05/05/17 Unknown amLODIPine [Norvasc] 10 mg PO DAILY 11/27/14 05/05/17 Unknown traZODone [Desyrel] 100 mg PO QHS 11/27/14 05/05/17 Unknown Previous Rx's Medication Instructions Recorded Last Taken Type raNITIdine HCl [Zantac] 150 mg PO BID #30 tablet 01/18/17 Unknown Rx Aspirin 325 mg PO QDAY #30 tablet 05/12/17 Unknown Rx AtorvaSTATin [Lipitor] 40 mg PO QHS #30 tablet 05/12/17 Unknown Rx Clopidogrel [Plavix] 75 mg PO QDAY #30 tablet 05/12/17 Unknown Rx Lisinopril/Hydrochlorothiazide 2 tab PO QDAY #30 tablet 05/12/17 Unknown Rx [Zestoretic 20-12.5 mg] amLODIPine [Norvasc] 10 mg PO DAILY #30 tablet 05/12/17 Unknown Rx Naproxen [Naproxen DR] 375 mg PO BID #30 tablet. 08/16/17 Unknown Rx Allergies/Adverse Reactions: Allergies Allergy/AdvReac Type Severity Reaction Status Date / Time No Known Allergies Allergy Unverified 07/09/15 17:47 ED Review of Systems ROS: Stated complaint: POSS STROKE Other details as noted in HPI Comment: All other systems reviewed and negative (patient has no complaints) ED Past Medical Hx - Past Medical History Hx Hypertension: Yes Hx CVA: Yes Hx Congestive Heart Failure: No Hx Diabetes: No Hx Renal Disease: No Hx Arthritis: No Hx Seizures: No Hx Psychiatric Treatment: Yes Hx Asthma: No Hx COPD: No Additional medical history: high cholesterol, - Surgical History Hx Pacemaker: No Hx Appendectomy: Yes Additional Surgical History: REGI surgery - Social History Smoking Status: Never Smoker Substance Use Type: None - Medications Home Medications: Home Medications Medication Instructions Recorded Confirmed Last Taken Type Alprostadil [[place] SUPPOS] 1,000 mcg UR PRN 11/27/14 05/05/17 Unknown History AtorvaSTATin [Lipitor] 80 mg PO DAILY 11/27/14 05/05/17 Unknown History Buspirone HCl [busPIRone] 5 mg PO BID 11/27/14 05/05/17 Unknown History Cholecalciferol (Vitamin D3) 1,000 unit PO QDAY 11/27/14 05/05/17 Unknown History [Vitamin D3 2,000 UNIT CAP] Potassium Chloride [K-Dur] 20 meq PO QDAY 11/27/14 05/05/17 Unknown History QUEtiapine [SEROquel] 100 mg PO QHS 11/27/14 05/05/17 Unknown History Sertraline [Zoloft] 200 mg PO QDAY 11/27/14 05/05/17 Unknown History Tadalafil [Cialis] 20 mg PO QDAY PRN 11/27/14 05/05/17 Unknown History amLODIPine [Norvasc] 10 mg PO DAILY 11/27/14 05/05/17 Unknown History traZODone [Desyrel] 100 mg PO QHS 11/27/14 05/05/17 Unknown History raNITIdine HCl [Zantac] 150 mg PO BID #30 tablet 01/18/17 05/05/17 Unknown Rx Aspirin 325 mg PO QDAY #30 tablet 05/12/17 Unknown Rx AtorvaSTATin [Lipitor] 40 mg PO QHS #30 tablet 05/12/17 Unknown Rx Clopidogrel [Plavix] 75 mg PO QDAY #30 tablet 05/12/17 Unknown Rx Lisinopril/Hydrochlorothiazide 2 tab PO QDAY #30 tablet 05/12/17 Unknown Rx [Zestoretic 20-12.5 mg] amLODIPine [Norvasc] 10 mg PO DAILY #30 tablet 05/12/17 Unknown Rx Naproxen [Naproxen DR] 375 mg PO BID #30 tablet.dr 08/16/17 Unknown Rx ED Neuro Physical Exam - General Limitations: No Limitations General appearance: alert, in no apparent distress Suspected Stroke: No - Head Head exam: Present: atraumatic, normocephalic - Eye Eye exam: Present: normal appearance - ENT ENT exam: Present: mucous membranes moist, other (partial facial paresis on left) - Neck Neck exam: Present: normal inspection. Absent: tenderness, meningismus - Respiratory Respiratory exam: Present: normal lung sounds bilaterally. Absent: respiratory distress - Cardiovascular Cardiovascular Exam: Present: regular rate, normal rhythm. Absent: systolic murmur, diastolic murmur, rubs, gallop - GI/Abdominal GI/Abdominal exam: Present: soft, normal bowel sounds. Absent: distended, tenderness, guarding, rebound - Rectal Rectal exam: Present: deferred - Extremities Exam Extremities exam: Present: normal inspection - Back Exam Back exam: Present: normal inspection - Neurological Exam Neurological exam: Present: alert, oriented X3 - NIHSS Assessment Interval: Baseline 1a. Level of Consciousness: alert/keenly responsive 1b. LOC Questions: answers both correctly 1c. LOC Commands: performs tasks correctly 2. Best Gaze: normal 3. Visual: no visual loss 4. Facial Palsy: partial paralysis 5b. Motor Arm Right: no drift 5a. Motor Arm Left: no drift 6a. Motor Leg Left: no drift 6b. Motor Leg Right: no drift 7. Limb Ataxia: absent 8. Sensory: normal 9. Best Language: no aphasia 10. Dysarthria: mild/moderate dysarthria 11. Extinction/Inattention: no abnormality Total Score: 3 Stroke Severity: Minor Stroke - Psychiatric Psychiatric exam: Present: normal affect, normal mood - Skin Skin exam: Present: warm, dry, intact, normal color. Absent: rash ED Course Vital Signs 10/05/18 10:53 Respiratory 18 Rate O2 Sat by Pulse 98 Oximetry - Reevaluation(s) Reevaluation #1: On reexamination the patient again confirmed that he was at his baseline. He is admitted to the hospitalist service for further care and workup after consultation with the stroke neurologist. 10/05/18 12:31 - Lab Data Result diagrams: 10/05/18 10:32 10/05/18 10:32 Lab Results 10/05/18 10/05/18 10/05/18 Range/Units 10:32 10:32 10:32 WBC 4.4 L (4.5-11.0) K/mm3 RBC 4.24 (3.65-5.03) M/mm3 Hgb 11.3 L (11.8-15.2) gm/dl Hct 34.5 L (35.5-45.6) % MCV 81 L (84-94) fl MCH 27 L (28-32) pg MCHC 33 (32-34) % RDW 14.1 (13.2-15.2) % Plt Count 183 (140-440) K/mm3 Lymph % (Auto) 29.5 (13.4-35.0) % [place] % (Auto) 10.4 H (0.0-7.3) % Eos % (Auto) 1.7 (0.0-4.3) % Baso % (Auto) 0.8 (0.0-1.8) % Lymph # 1.3 (1.2-5.4) K/mm3 [place] # 0.5 (0.0-0.8) K/mm3 Eos # 0.1 (0.0-0.4) K/mm3 Baso # 0.0 (0.0-0.1) K/mm3 Seg Neutrophils % 57.6 (40.0-70.0) % Seg Neutrophils # 2.5 (1.8-7.7) K/mm3 PT 13.7 (12.2-14.9) Sec. INR 1.08 (0.87-1.13) APTT 25.0 (24.2-36.6) Sec. Thrombin Time 18.0 (15.1-19.6) Sec. Sodium 141 (137-145) mmol/L Potassium 2.9 L* (3.6-5.0) mmol/L Chloride 98.8 (98-107) mmol/L Carbon Dioxide 32 H (22-30) mmol/L Anion Gap 13 mmol/L BUN 12 (9-20) mg/dL Creatinine 1.1 (0.8-1.5) mg/dL Estimated GFR > 60 ml/min BUN/Creatinine Ratio 11 % Glucose 142 H (75-100) mg/dL Lactic Acid (0.7-2.0) mmol/L Calcium 9.0 (8.4-10.2) mg/dL Total Bilirubin (0.1-1.2) mg/dL Direct Bilirubin (0-0.2) mg/dL Indirect Bilirubin mg/dL AST (5-40) units/L ALT (7-56) units/L Alkaline Phosphatase (35-129) units/L Total Creatine Kinase 166 (55-170) units/L CK-MB (CK-2) 1.3 (0.0-4.0) ng/mL CK-MB (CK-2) Rel Index 0.7 (0-4) Troponin T < 0.010 (0.00-0.029) ng/mL Total Protein (6.3-8.2) g/dL Albumin (3.9-5) g/dL Albumin/Globulin Ratio % 08/14/19 08/14/19 Range/Units 10:32 10:32 WBC (4.5-11.0) K/mm3 RBC (3.65-5.03) M/mm3 Hgb (11.8-15.2) gm/dl Hct (35.5-45.6) % MCV (84-94) fl MCH (28-32) pg MCHC (32-34) % RDW (13.2-15.2) % Plt Count (140-440) K/mm3 Lymph % (Auto) (13.4-35.0) % [place] % (Auto) (0.0-7.3) % Eos % (Auto) (0.0-4.3) % Baso % (Auto) (0.0-1.8) % Lymph # (1.2-5.4) K/mm3 [place] # (0.0-0.8) K/mm3 Eos # (0.0-0.4) K/mm3 Baso # (0.0-0.1) K/mm3 Seg Neutrophils % (40.0-70.0) % Seg Neutrophils # (1.8-7.7) K/mm3 PT (12.2-14.9) Sec. INR (0.87-1.13) APTT (24.2-36.6) Sec. Thrombin Time (15.1-19.6) Sec. Sodium (137-145) mmol/L Potassium (3.6-5.0) mmol/L Chloride (98-107) mmol/L Carbon Dioxide (22-30) mmol/L Anion Gap mmol/L BUN (9-20) mg/dL Creatinine (0.8-1.5) mg/dL Estimated GFR ml/min BUN/Creatinine Ratio % Glucose (75-100) mg/dL Lactic Acid 1.30 (0.7-2.0) mmol/L Calcium (8.4-10.2) mg/dL Total Bilirubin 0.50 (0.1-1.2) mg/dL Direct Bilirubin < 0.2 (0-0.2) mg/dL Indirect Bilirubin 0.3 mg/dL AST 14 (5-40) units/L ALT 10 (7-56) units/L Alkaline Phosphatase 46 (35-129) units/L Total Creatine Kinase (55-170) units/L CK-MB (CK-2) (0.0-4.0) ng/mL CK-MB (CK-2) Rel Index (0-4) Troponin T (0.00-0.029) ng/mL Total Protein 7.8 (6.3-8.2) g/dL Albumin 4.0 (3.9-5) g/dL Albumin/Globulin Ratio 1.1 % Laboratory Results - last 24 hr 10/05/18 10/05/18 10/05/18 10:32 10:32 10:32 WBC 4.4 L RBC 4.24 Hgb 11.3 L Hct 34.5 L MCV 81 L MCH 27 L MCHC 33 RDW 14.1 Plt Count 183 Lymph % (Auto) 29.5 [place] % (Auto) 10.4 H Eos % (Auto) 1.7 Baso % (Auto) 0.8 Lymph # 1.3 [place] # 0.5 Eos # 0.1 Baso # 0.0 Seg Neutrophils % 57.6 Seg Neutrophils # 2.5 Sodium 141 Potassium 2.9 L* Chloride 98.8 Carbon Dioxide 32 H Anion Gap 13 BUN 12 Creatinine 1.1 Estimated GFR > 60 BUN/Creatinine Ratio 11 Glucose 142 H Lactic Acid Calcium 9.0 Total Bilirubin 0.50 Direct Bilirubin < 0.2 Indirect Bilirubin 0.3 AST 14 ALT 10 Alkaline Phosphatase 46 Total Creatine Kinase 166 CK-MB (CK-2) 1.3 CK-MB (CK-2) Rel Index 0.7 Troponin T < 0.010 Total Protein 7.8 Albumin 4.0 Albumin/Globulin Ratio 1.1 10/05/18 10:32 WBC RBC Hgb Hct MCV MCH MCHC RDW Plt Count Lymph % (Auto) [place] % (Auto) Eos % (Auto) Baso % (Auto) Lymph # [place] # Eos # Baso # Seg Neutrophils % Seg Neutrophils # Sodium Potassium Chloride Carbon Dioxide Anion Gap BUN Creatinine Estimated GFR BUN/Creatinine Ratio Glucose Lactic Acid 1.30 Calcium Total Bilirubin Direct Bilirubin Indirect Bilirubin AST ALT Alkaline Phosphatase Total Creatine Kinase CK-MB (CK-2) CK-MB (CK-2) Rel Index Troponin T Total Protein Albumin Albumin/Globulin Ratio - EKG Data -: EKG Interpreted by Mt EKG shows normal: sinus rhythm Rate: normal Interpretation: other (U wave consistent with hypokalemia, left axis deviation/left anterior fascicular block, LVH is not likely) - Radiology Data Radiology results: report reviewed - Thrombolytic Inclusion/Exclusion Thrombolytic Exclusion Criteria: Onset of Symptoms Unknown Thrombolytic Contraindications: Rapidily Improving s/s Critical care attestation.: If time is entered above; I have spent that time in minutes in the direct care of this critically ill patient, excluding procedure time. ED Disposition Clinical Impression: New onset seizure Altered mental status Qualifiers: Altered mental status type: stupor Qualified Code(s): R40.1 - Stupor Disposition: DC-09 OP ADMIT IP TO THIS HOSP Is pt being admited?: Yes Does the pt Need Aspirin: Yes Condition: Stable Time of Disposition: 12:32
--- NOTE | 2018-10-05 11:13 | XRay Report ---
CHEST 1 VIEW INDICATION: hypertension. COMPARISON: None FINDINGS: Support devices: None. Heart: Within normal limits. Lungs/Pleura: No acute air space or interstitial disease. Additional findings: None. IMPRESSION: No acute findings. Signer Name: Ronal Olivarez Jr, MD Signed: 10/05/2018 11:09 AM Workstation Name: [id number]
[2018-10-05 11:29] LABS: INR 1.08 (0.87-1.13)
[2018-10-05] MEDS: ASPIRIN PO SCH (13:20)
[2018-10-05] MEDS ORDERED: REGLAN IV PRN (21:06)
[2018-10-05] MEDS ORDERED: IBUPROFEN PO PRN (21:06)
[2018-10-05] MEDS ORDERED: DILAUDID IV PRN (21:06)
[2018-10-05] MEDS ORDERED: ZOFRAN IV PRN (21:06)
[2018-10-05] MEDS ORDERED: TYLENOL PO PRN (21:06)
[2018-10-05] MEDS ORDERED: SODIUM CHLORIDE FLUSH SYRINGE 10 ML IV PRN (21:06)
[2018-10-05] MEDS ORDERED: K-DUR PO SCH (22:00)
[2018-10-05] MEDS ORDERED: NAPROSYN PO SCH (22:00)
[2018-10-05] MEDS ORDERED: NACL 0.9% 1000 ML 1,000 ML IV SCH (22:00)
[2018-10-05] MEDS ORDERED: PEPCID PO SCH (22:00)
[2018-10-05] MEDS ORDERED: DESYREL PO SCH (22:00)
[2018-10-05] MEDS ORDERED: LOVENOX SUB-Q SCH (22:00)
[2018-10-05] MEDS ORDERED: ASPIRIN PO SCH (22:00)
--- NOTE | 2018-10-05 22:00 | History and Physical Report ---
CHIEF COMPLAINT: Seizures and lethargic, post seizures. HISTORY OF PRESENT ILLNESS: A 58-year-old with history of strokes in the past with residual left-sided weakness, comes in for seizures followed by altered sensorium. The patient apparently had 3-4 stools, which left him with left-sided weakness. Code stroke was called, but canceled later. No TPA was given. The patient was postictal and lethargic. Tonic-clonic seizures. No history of seizures in the past, but had four strokes with chronic scarring. PAST MEDICAL HISTORY: Significant for hyperlipidemia, vitamin D deficiency, bipolar disorder, erectile dysfunction and hypertension. Multiple cerebrovascular accidents. PAST SURGICAL HISTORY: Appendectomy. SOCIAL HISTORY: Does not smoke. No alcohol. FAMILY HISTORY: Significant for hypertension. CURRENT MEDICATIONS: Atorvastatin 80 mg once a day, Seroquel 100 mg once a day, amlodipine 10 mg once a day, ranitidine 150 mg twice a day, lisinopril 20/12.5 once a day. REVIEW OF SYSTEMS: Significant for postictal lethargy, which is resolving while in the Emergency Room. Able to move all 4 extremities. Otherwise, review of systems is negative. PHYSICAL EXAMINATION: GENERAL: Middle-aged male, cooperative during my examination. VITAL SIGNS: Blood pressure 117/77, temperature 97.5, pulse is 56, respiratory rate is 18, sats are 98%. HEENT: Unremarkable. Pupils equal and reactive. NECK: Supple, no lymphadenopathy, no thyromegaly. LUNGS: Clear to auscultation and percussion. Good air entry. CARDIOVASCULAR: S1, S2 heard. No gallop, no murmur, no rub. Apical impulse in left fifth intercostal space and midclavicular line. ABDOMEN: Soft and benign. No hepatosplenomegaly. No guarding, no rigidity. Hernial orifices are normal. EXTREMITIES: Good pedal pulses. No pedal edema. Power is 5/5 in all 4 extremities. LABORATORY DATA: White count is 4400, hemoglobin 11.3, hematocrit is 34.5, platelet count is 183,000. Sodium is 141, potassium is 2.9. Lactic acid is 1.3. LFTs are normal. Sodium is 141. CAT scan of the head shows volume loss and chronic white matter changes, multiple chronic infarcts. Sinus bradycardia, heart rate of 57 per minute, left anterior fascicular block. No acute ST-T wave changes. Chest x-ray, no acute findings. ASSESSMENT AND PLAN: 1. New-onset seizure disorder. Continue IV Keppra and bridged to p.o. Keppra. 2. Acute encephalopathy secondary to the postictal state. IV fluids and IV Keppra for now. 3. Hypokalemia, supplemented. 4. Hypertension. Continue antihypertensives in the form of amlodipine and lisinopril. 5. Hyperlipidemia. Continue atorvastatin 40 mg daily. 6. Vitamin D deficiency. Continue vitamin D. 7. Coronary artery disease. Continue Plavix. 8. History of cerebrovascular accidents. Continue Plavix. 9. Bipolar disorder. Continue Seroquel. 10. Depression. Continue Zoloft. 11. Deep venous thrombosis prophylaxis, Lovenox 40 mg subcutaneous daily. In summary, the patient has seizure disorder, acute encephalopathy, hypertension, bipolar disorder, GERD and multiple CVAs in the past with minimal residual weakness on the left side. [facility]# [id number] IVY/NTS
[2018-10-05] MEDS: NORVASC PO SCH (23:39)
[2018-10-05] MEDS: BUSPAR PO SCH (23:39)
[2018-10-05] MEDS: PEPCID PO SCH (23:39)
[2018-10-05] MEDS: SODIUM CHLORIDE FLUSH SYRINGE 10 ML IV SCH (23:40)
[2018-10-05] MEDS: ZOLOFT PO SCH (23:40)
[2018-10-05] MEDS: KEPPRA 750 MG in D5W 100 ML IV SCH (23:41)
[2018-10-06] MEDS: K-DUR PO SCH ×3 (00:12→12:55)
[2018-10-06] MEDS: PLAVIX PO SCH ×2 (00:13→12:48)
[2018-10-06] MEDS: KCL 10MEQ/100ML 10 MEQ/100 ML BAG IV SCH ×4 (00:43→04:08)
[2018-10-06 05:32] LABS: Basophils % (Auto) 0.4 % (0.0-1.8); Eosinophils # (Auto) 0.1 K/mm3 (0.0-0.4); Eosinophils % (Auto) 2.7 % (0.0-4.3); Hematocrit 32.8 % (35.5-45.6); Hemoglobin 10.9 gm/dl (11.8-15.2); Lymphocytes # (Auto) 1.3 K/mm3 (1.2-5.4); Lymphocytes % (Auto) 34.8 % (13.4-35.0); Mean Corpuscular HGB Conc 33 % (32-34); Mean Corpuscular Volume 81 fl (84-94); Monocytes # (Auto) 0.4 K/mm3 (0.0-0.8); Monocytes % (Auto) 10.2 % (0.0-7.3); Platelet Count 164 K/mm3 (140-440); Red Blood Count 4.04 M/mm3 (3.65-5.03)
[2018-10-06 05:55] LABS: Alanine Aminotransferase 9 units/L (7-56); Albumin 3.8 g/dL (3.9-5); BUN/Creatinine Ratio 14; Blood Urea Nitrogen 14 mg/dL (9-20); Calcium 8.9 mg/dL (8.4-10.2); Hemolysis Index 4
[2018-10-06] MEDS ORDERED: LISINOPRIL PO SCH (10:00)
[2018-10-06] MEDS ORDERED: VITAMIN D3 PO SCH (10:00)
[2018-10-06] MEDS ORDERED: HYDROCHLOROTHIAZIDE PO SCH (10:00)
[2018-10-06] MEDS ORDERED: ZESTRIL PO SCH (10:00)
[2018-10-06] MEDS ORDERED: HCTZ PO SCH (10:00)
--- NOTE | 2018-10-06 12:09 | Discharge Summary ---
Providers - Providers Date of Admission: 10/05/18 11:51 Attending physician: JAVIER RODAS MD 10/05/18 13:54 Consult to Dietitian/Nutrition [CONS] Routine Physician Instructions: Reason For Exam: Reason for Consult: Pt needs oral supplement 10/05/18 21:06 Consult to Physician [CONS] Routine Comment: Consulting Provider: VICKIE ALEX Physician Instructions: Reason For Exam: seizure disorder [facility] Reason for admission: seizure Condition: Stable Hospital course: Patient is a 58-year-old man that arrives as a "code stroke". Per ED documentation Medics tell me that he was found lethargic with froth at the side of his mouth. They checked his sugar and vital signs which were within reasonable limits. While being transported to the hospital the patient essentially awoke. At the time of his arrival he was able to tell me his age and the month. He also told me that he felt like he was back to normal. He stated that he had 3 or 4 prior strokes which left him with left-sided weakness and facial paresis. This was apparent on initial exam. Code stroke continued. I reported the history to tell her neurologist who concurred that a postictal state was probably what occurred. Therefore and being that the patient had no acute neurological deficits he was ineligible for treatment with TPA and it was deemed not to be appropriate. Patient stated that he had no history of seizures in the past. Obviously he was substantial risk with multiple prior strokes. He was treated empirically with Keppra. Neurology was consulted on admission and patient was diagnosed with high risk of seizure due to multiple prior strokes. He was started on Keppra 500mg bid AND Advised on Patient should be advised to avoid sleep deprivation, skipping meal and stress as these are things which may precipitate seizure. Patient to have regular follow-up with a neurologist for a seizure Seizure-New onset Acute Metabolic Encephalopathy secondary to seizure disorder-Resolved Hypokalemia Hypertension Vitamin D deficiency CAD Htn Bipolar disorder depression Disposition: DC/TX-06 HOME UNDER HOME [facility] Time spent for discharge: 35 mins Core Measure Documentation - Palliative Care Palliative Care/ Comfort Measures: Not Applicable - Core Measures Any of the following diagnoses?: none Exam - Constitutional Vitals: Temp Pulse Resp BP Pulse Ox 98.0 F 56 L 18 123/80 100 10/06/18 04:43 10/06/18 04:43 10/06/18 04:43 10/06/18 04:43 10/06/18 04:43 General appearance: Present: no acute distress, well-nourished - EENT Eyes: Present: PERRL, EOM intact ENT: hearing intact, clear oral mucosa, dentition normal - Neck Neck: Present: supple, normal ROM - Respiratory Respiratory effort: normal Respiratory: bilateral: CTA - Cardiovascular Rhythm: regular Heart Sounds: Present: S1 & S2. Absent: systolic murmur - Extremities Extremities: no ischemia, pulses intact, pulses symmetrical, No edema, normal temperature, normal color, Full ROM Peripheral Pulses: within normal limits - Abdominal General gastrointestinal: Present: soft, non-tender, non-distended, normal bowel sounds - Integumentary Integumentary: Present: clear, warm, dry - Musculoskeletal Musculoskeletal: strength equal bilaterally - Psychiatric Psychiatric: appropriate mood/affect, intact judgment & insight, memory intact - Neurologic Neurologic: CNII-XII intact, moves all extremities, other - Additional findings Additional findings: Sensory. Sensory examination was grossly within normal limit Gait. Although patient had right-sided weakness he was able to ambulate without any assistive device. - Allied Health Allied health notes reviewed: nursing Plan Activity: advance as tolerated, no driving until cleared by PCP, other (No operating of motorized vehicle, diving or swiming till cleared by pcp) Diet: low fat Special Instructions: record daily BP diary, smoking cessation Additional Instructions: [facility]. Avoid sleep deprivation, skipping meal and stress Follow up with: ANAM GOOD MD [Primary Care Provider] - 3-5 Days Prescriptions: levETIRAcetam [Keppra TAB] 500 mg PO BID #60 tablet
[2018-10-06 12:43] VITALS: BP 150/101
[2018-10-06] MEDS: ZOLOFT PO SCH (12:48)
[2018-10-06] MEDS: ASPIRIN PO SCH (12:48)
[2018-10-06] MEDS: PEPCID PO SCH (12:49)
[2018-10-06] MEDS: BUSPAR PO SCH (12:49)
[2018-10-06] MEDS: NORVASC PO SCH (12:49)
[2018-10-06] MEDS: SODIUM CHLORIDE FLUSH SYRINGE 10 ML IV SCH (12:50)
--- NOTE | 2018-10-06 12:52 | Consultation ---
Medications and Allergies Allergies Allergy/AdvReac Type Severity Reaction Status Date / Time No Known Allergies Allergy Unverified 07/09/15 17:47 Home Medications Medication Instructions Recorded Confirmed Last Taken Type Alprostadil [[place] SUPPOS] 1,000 mcg UR PRN 11/27/14 05/05/17 Unknown History AtorvaSTATin [Lipitor] 80 mg PO DAILY 11/27/14 05/05/17 Unknown History Buspirone HCl [busPIRone] 5 mg PO BID 11/27/14 05/05/17 Unknown History Cholecalciferol (Vitamin D3) 1,000 unit PO QDAY 11/27/14 05/05/17 Unknown History [Vitamin D3 2,000 UNIT CAP] Potassium Chloride [K-Dur] 20 meq PO QDAY 11/27/14 05/05/17 Unknown History QUEtiapine [SEROquel] 100 mg PO QHS 11/27/14 05/05/17 Unknown History Sertraline [Zoloft] 200 mg PO QDAY 11/27/14 05/05/17 Unknown History Tadalafil [Cialis] 20 mg PO QDAY PRN 11/27/14 05/05/17 Unknown History amLODIPine [Norvasc] 10 mg PO DAILY 11/27/14 05/05/17 Unknown History traZODone [Desyrel] 100 mg PO QHS 11/27/14 05/05/17 Unknown History raNITIdine HCl [Zantac] 150 mg PO BID #30 tablet 01/18/17 05/05/17 Unknown Rx Aspirin 325 mg PO QDAY #30 tablet 05/12/17 Unknown Rx AtorvaSTATin [Lipitor] 40 mg PO QHS #30 tablet 05/12/17 Unknown Rx Clopidogrel [Plavix] 75 mg PO QDAY #30 tablet 05/12/17 Unknown Rx Lisinopril/Hydrochlorothiazide 2 tab PO QDAY #30 tablet 05/12/17 Unknown Rx [Zestoretic 20-12.5 mg] amLODIPine [Norvasc] 10 mg PO DAILY #30 tablet 05/12/17 Unknown Rx Naproxen [Naproxen DR] 375 mg PO BID #30 tablet.dr 08/16/17 Unknown Rx levETIRAcetam [Keppra TAB] 500 mg PO BID #60 tablet 10/06/18 Unknown Rx Active Meds: Active Medications Acetaminophen (Tylenol) 650 mg PO Q4H PRN PRN Reason: Pain MILD(1-3)/Fever >100.5/GAO Amlodipine Besylate (Norvasc) 10 mg PO DAILY COUNT INCLUDES THE [facility] Last Admin: 10/05/18 23:39 Dose: Not Given Documented by: Aspirin (Aspirin) 325 mg PO QDAY COUNT INCLUDES THE [facility] Last Admin: 10/05/18 13:20 Dose: 325 mg Documented by: Atorvastatin Calcium (Lipitor) 40 mg PO QHS COUNT INCLUDES THE [facility] Last Admin: 10/05/18 23:40 Dose: 40 mg Documented by: Buspirone HCl (Buspar) 5 mg PO BID COUNT INCLUDES THE [facility] Last Admin: 10/05/18 23:39 Dose: 5 mg Documented by: Cholecalciferol (Vitamin D3) 1,000 unit PO QDAY COUNT INCLUDES THE [facility] Clopidogrel Bisulfate (Plavix) 75 mg PO QDAY COUNT INCLUDES THE [facility] Last Admin: 10/06/18 00:13 Dose: Not Given Documented by: Enoxaparin Sodium (Lovenox) 40 mg SUB-Q QDAY@2200 COUNT INCLUDES THE [facility] Last Admin: 10/06/18 00:44 Dose: 40 mg Documented by: Famotidine (Pepcid) 20 mg PO BID COUNT INCLUDES THE [facility] Last Admin: 10/05/18 23:39 Dose: 20 mg Documented by: Hydrochlorothiazide (Hctz) 25 mg PO QDAY COUNT INCLUDES THE [facility] Hydromorphone HCl (Dilaudid) 0.5 mg IV Q3H PRN PRN Reason: Pain , Severe (7-10) Sodium Chloride (Nacl 0.9% 1000 Ml) 1,000 mls @ 75 mls/hr IV DIRECT COUNT INCLUDES THE [facility] Last Admin: 10/05/18 23:42 Dose: 75 mls/hr Documented by: Levetiracetam 750 mg/ Dextrose 107.5 mls @ 400 mls/hr IV Q12HR COUNT INCLUDES THE [facility] Last Admin: 10/05/18 23:41 Dose: 400 mls/hr Documented by: Ibuprofen (Ibuprofen) 600 mg PO Q6H PRN PRN Reason: Pain, Mild (1-3) Lisinopril (Zestril) 40 mg PO QDAY COUNT INCLUDES THE [facility] Metoclopramide HCl (Reglan) 10 mg IV Q6H PRN PRN Reason: Nausea And Vomiting Naproxen (Naprosyn) 375 mg PO BID COUNT INCLUDES THE [facility] Last Admin: 10/06/18 00:44 Dose: Not Given Documented by: Ondansetron HCl (Zofran) 4 mg IV Q8H PRN PRN Reason: Nausea And Vomiting Potassium Chloride (K-Dur) 20 meq PO QDAY COUNT INCLUDES THE [facility] Quetiapine Fumarate (Seroquel) 100 mg PO QHS COUNT INCLUDES THE [facility] Sertraline HCl (Zoloft) 200 mg PO QDAY COUNT INCLUDES THE [facility] Last Admin: 10/05/18 23:40 Dose: Not Given Documented by: Sodium Chloride (Sodium Chloride Flush Syringe 10 Ml) 10 ml IV BID COUNT INCLUDES THE [facility] Last Admin: 10/05/18 23:40 Dose: 10 ml Documented by: Sodium Chloride (Sodium Chloride Flush Syringe 10 Ml) 10 ml IV PRN PRN PRN Reason: LINE FLUSH Trazodone HCl (Desyrel) 100 mg PO QHS COUNT INCLUDES THE [facility] Last Admin: 10/05/18 23:39 Dose: Not Given Documented by: Physical Examination - Vital Signs Vital Signs: Vital Signs Resp Pulse Ox 18 98 10/05/18 10:53 10/05/18 10:53 Results - Laboratory Findings CBC and BMP: 10/06/18 05:09 10/06/18 05:09 Abnormal Lab Findings: Abnormal Labs 10/05/18 10/05/18 10/06/18 10:32 10:32 05:09 WBC 4.4 L 3.6 L Hgb 11.3 L 10.9 L Hct 34.5 L 32.8 L MCV 81 L 81 L MCH 27 L 27 L [place] % (Auto) 10.4 H 10.2 H Sodium Potassium 2.9 L* Carbon Dioxide 32 H Glucose 142 H Albumin 10/06/18 05:09 WBC Hgb Hct MCV MCH [place] % (Auto) Sodium 136 L Potassium Carbon Dioxide Glucose Albumin 3.8 L Assessment and Plan Neurology consult report Mr. 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 By the time patient arrived at the emergency he came back to himself and was found alert and appropriate. Although he was brought on stroke there is no indication for TPA. Patient was diagnosed to have post ictal state from seizure. Patient did not have any history of seizure in the past. Workup including MRI of the brain showed multiple old infarcts in the right hemisphere. Lab showed that his electrolytes were within normal limits except for hypokalemia which is since been corrected. Patient was started on Keppra and did not have any recurrence of seizures since admission. Physical examination. Patient is alert and appropriate and answer questions appropriately he is oriented 3. He wanted to go home. Heart. Normal rate and rhythm. Carotids. Both palpable and no bruit Cranial nerves. All cranial nerves are within normal limit except for mild residual left facial weakness. Motor. Weak right upper and lower extremities as compared to the left. Reflexes. Patient has increased reflexes on both right upper and lower extremi ties. Coordination. Coordination was intact. Sensory. Sensory examination was grossly within normal limit Gait. Although patient had right-sided weakness he was able to ambulate without any assistive device. Impression. #1 patient has a significant risk factor for seizure Recommendation. #1. Please start him on Keppra 500 mg by mouth twice a day #2. Patient should be advised to avoid sleep deprivation, skipping meal and stress as these are things which may precipitate seizure. #3. Patient to have regular follow-up with a neurologist for a seizure
[2018-10-06] MEDS: KEPPRA 750 MG in D5W 100 ML IV SCH (12:54)
[2018-10-06] MEDS ORDERED: K-DUR PO ONE (12:55)
--- NOTE | 2018-10-06 13:26 | Magnetic Resonance Report ---
MRI BRAIN 10/06/2018 INDICATION / CLINICAL INFORMATION: acute encephalopathy. TECHNIQUE: Multiplanar, multisequence MR images of the brain were obtained. COMPARISON: 05/04/2017 FINDINGS: BRAIN / INTRACRANIAL CONTENTS: Unenhanced MR images of the brain were obtained and compared to the pr ior exam from 05/04/2017. Again seen is prominent diffuse cerebral atrophy and extensive chronic white matter T2 weighted signa l change. A previous area of right frontal subcortical ischemic change now has a chronic appearance. There is also evidence of chronic cortical ischemic change in the left frontal lobe, unchanged when c ompared to the prior exam. On the diffusion-weighted images, there is a subtle 4 mm focus of increased signal in the right front al subcortical white matter, with no definite ADC correlate. This may be evidence of a small focus of recent ischemic injury, alteration several days. This could also be an area of residual T2 shine thr ough resulting from either an older ischemic change. There is no evidence of hyper acute ischemic viraj nge. There are no abnormal extra-axial fluid collections. There is no evidence of hemorrhage. EXTRACRANIAL: Unremarkable CRANIOCERVICAL JUNCTION: No significant abnormality. VASCULAR FLOW-VOIDS: Tortuosity of the basilar artery is again noted. IMPRESSION: Extensive chronic ischemic change and atrophy for age. 2. No definite evidence of acute ischemic change. See above discussion. Signer Name: Chacho Zacarias MD Signed: 10/06/2018 1:22 PM Workstation Name: [id number]
== END 2018-10-06 13:30 | disposition home health service (06) ==
LOC: ED 10:13 → INTOOBSV 11:51 → 3A 11:51
PROVIDERS: ADMIT Internal Medicine; ATTEND Internal Medicine
DX: G40.909 Epilepsy, unspecified, not intractable, without status epilepticus (principal); E87.6 Hypokalemia; G93.40 Encephalopathy, unspecified; I10 Essential (primary) hypertension; E87.5 Hyperkalemia; E55.9 Vitamin D deficiency, unspecified; I25.10 Atherosclerotic heart disease of native coronary artery without angina pectoris; F31.9 Bipolar disorder, unspecified; Z86.73 Personal history of transient ischemic attack (TIA), and cerebral infarction without residual deficits
CPT/HCPCS: 36415; 70450; 70551; 71045; 80048; 80053; 80076; 82140; 82550; 82553; 83036; 84484; 85025; 85610; 85670; 85730; 93005; 93010; 96365; 96366; 96372; 99285; A9270; G0378; J1650; J1953; J3480; J7030

== ENCOUNTER 2018-10-10 18:15 | Emergency (ER) | payer MEDICAID ==
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
[2018-10-11 00:28] VITALS: BP 148/73
== END 2018-10-11 00:28 | disposition home or self-care (01) ==
LOC: ED 18:15
DX: S39.012A Strain of muscle, fascia and tendon of lower back, initial encounter (principal); I10 Essential (primary) hypertension; Z86.73 Personal history of transient ischemic attack (TIA), and cerebral infarction without residual deficits; Z90.89 Acquired absence of other organs; Z98.890 Other specified postprocedural states; E78.00 Pure hypercholesterolemia, unspecified; Z79.899 Other long term (current) drug therapy; V49.59XA Passenger injured in collision with other motor vehicles in traffic accident, initial encounter; Y93.89 Activity, other specified; Y92.410 Unspecified street and highway as the place of occurrence of the external cause; Y99.8 Other external cause status
CPT/HCPCS: 72100